=== PATIENT | female | born 1940 | race Two or more races ===

== ENCOUNTER 2023-06-16 02:00 | Inpatient (IN) | payer MEDICARE, MEDICAID ==
[~2023-06-16] VITALS: Ht 167.6 cm; Wt 42.6 kg
[2023-06-16] MEDS: ALBUTEROL FS 2.5 MG/3 ML VIAL.NEB NEB ONE (02:24)
[2023-06-16] MEDS ORDERED: methylPREDNISolone SOD SUCC 125 MG/2ML VIAL ONE (02:24)
[2023-06-16] MEDS ORDERED: ALBUTEROL FS 2.5 MG/3 ML VIAL.NEB ONE (02:25)
[2023-06-16] MEDS: IV NS 0.9% 1,000 ML IV ONE (02:32)
[2023-06-16] MEDS: methylPREDNISolone SOD SUCC 125 MG/2ML VIAL IV ONE (02:32)
[2023-06-16 03:18] LABS: CALCIUM, SERUM 8.4 mg/dL (8.5-10.1); CARBON DIOXIDE 15 mmol/L (21-32); CHLORIDE 105 mmol/L (98-107); CREATININE 1.3 mg/dL (0.6-1.3); GLUCOSE 175 mg/dL (74-106); POTASSIUM 4.8 mmol/L (3.5-5.1); SODIUM SERUM 140 mmol/L (136-145); UREA NITROGEN, BLOOD 49 mg/dL (7-18)
[2023-06-16 03:30] LABS: ALANINE AMINOTRANSFERASE 14 U/L (12-78); ALKALINE PHOSPHATASE 52 U/L (46-116); ASPARTATE AMINOTRANSFERASE 18 U/L (15-37); BILIRUBIN,TOTAL 0.3 mg/dL (0.2-1.0); NT-PRO BNP 2731 pg/mL (0-125); TOTAL PROTEIN, SERUM 5.1 g/dL (6.4-8.2)
[2023-06-16] MEDS ORDERED: VANCOMYCIN 1 GM /D5W 250 ML PB IV ONE (06:26)
[2023-06-16] MEDS ORDERED: PIPERACI/TAZO 3.375GM/D5W 50ML PB IV ONE (06:26)
[2023-06-16] MEDS: PIPERACILLIN /TAZOBACTAM 3.375 G in IV D5W 50 ML IV ONE (06:39)
[2023-06-16] MEDS: VANCOMYCIN 1 GM in IV D5W 250 ML IV ONE (06:59)
[2023-06-16 07:23] LABS: LACTIC ACID 10.7 mmol/L (0.4-2.0)
[2023-06-16 07:25] LABS: BASOPHILS % (AUTO) 0.2 % (0.0-2.0); EOSINOPHILS % (AUTO) 0.3 % (0.0-6.0); LYMPHOCYTES # (AUTO) 0.4 K/uL (0.8-4.8); LYMPHOCYTES % (AUTO) 6.5 % (20.0-44.0); MEAN CORPUSCULAR HEMOGLOBIN 29 PG (26.0-33.0); MEAN CORPUSCULAR HGB CONC 32 g/dl (31.0-36.0); MEAN CORPUSCULAR VOLUME 91 fL (82-100); MONOCYTES # (AUTO) 0.2 K/uL (0.1-1.30); MONOCYTES % (AUTO) 3.4 % (2.0-12.0); NEUTROPHILS # (AUTO) 5.8 K/uL (1.8-8.9); NEUTROPHILS % (AUTO) 89.6 % (43.0-81.0); PLATELET COUNT (AUTO) 164 K/uL (150-450); RED CELL DISTRIBUTION WIDTH 16.4 % (11.5-15.0); WHITE BLOOD COUNT (AUTO) 6.5 K/uL (4.3-11.0)
[2023-06-16 07:35] LABS: RED BLOOD CELL COUNT(AUTO) 1.84 MIL/uL (4.0-5.2)
[2023-06-16 07:36] LABS: HEMATOCRIT 17 % (33-45); HEMOGLOBIN 5.4 g/dL (11.5-14.8)
[2023-06-16 08:19] VITALS: BP 103/57; TEMP 93.5
[2023-06-16 08:24] LABS: ANISOCYTOSIS 1+; BAND % (MANUAL) 2 % (0.0-5.0); EOSINOPHILS % (MANUAL) 0 % (0-4); LYMPHOCYTES % (MANUAL) 8 % (16-48); MONOCYTES % (MANUAL) 4 % (0-11.0); NEUTROPHILS % (MANUAL) 86 (42-76); OVALOCYTES 1+; PLATELET ESTIMATE ADEQUATE
[2023-06-16] MEDS ORDERED: MAGN400O6 PO (08:53)
[2023-06-16] MEDS ORDERED: MAG-5 PO (08:53)
[2023-06-16] MEDS ORDERED: ALBU8.5H8 IH (08:53)
[2023-06-16] MEDS ORDERED: ACET-2605 PO (08:53)
[2023-06-16] MEDS ORDERED: ASCO-340 PO (08:53)
[2023-06-16] MEDS ORDERED: GLYC10.7 IH (08:53)
[2023-06-16] MEDS ORDERED: ATOR40TA PO (08:53)
[2023-06-16] MEDS ORDERED: MIRT-90 PO (08:53)
[2023-06-16] MEDS ORDERED: IBUP-2715 PO (08:53)
[2023-06-16] MEDS ORDERED: FOLI0.4T6 PO (08:53)
[2023-06-16] MEDS ORDERED: ASPI-1420 PO (08:53)
[2023-06-16] MEDS ORDERED: CALC-1321 PO (08:53)
[2023-06-16] MEDS ORDERED: AMLO2.5T4 PO (08:53)
[2023-06-16] MEDS ORDERED: DOCU100T2 PO (08:53)
[2023-06-16] MEDS ORDERED: FERR325T24 PO (08:53)
[2023-06-16] MEDS ORDERED: ACET-868 PO (08:53)
[2023-06-16] MEDS ORDERED: BISA10SU11 RC (08:53)
[2023-06-16] MEDS ORDERED: NA P133E RC (08:53)
[2023-06-16] MEDS ORDERED: LABE100T5 PO (08:53)
[2023-06-16] MEDS ORDERED: VALS160T2 PO (08:53)
[2023-06-16] MEDS ORDERED: MORPHINE SULFATE INJ 2 MG/ML DISP.SYRIN IV PRN (09:30)
[2023-06-16] MEDS ORDERED: Z GUARD REMEDY 4 OZ OINT TP PRN (09:30)
[2023-06-16] MEDS ORDERED: MAG HYDROX/AL HYDROX/SIMETH 30 ML UDC PO PRN (09:30)
[2023-06-16] MEDS ORDERED: MAGNESIUM HYDROXIDE 30 ML UDC PO PRN (09:30)
[2023-06-16] MEDS ORDERED: ALBUTEROL FS 2.5 MG/0.5 ML VIAL.NEB NEB PRN (09:30)
[2023-06-16] MEDS ORDERED: IPRATROPIUM NEB FS 0.5 MG/2.5 ML AMPUL.NEB NEB PRN (09:30)
[2023-06-16] MEDS ORDERED: ACETAMINOPHEN 325 MG TABLET PO PRN (09:30)
[2023-06-16] MEDS ORDERED: ONDANSETRON HCL/PF 4 MG/2 ML VIAL IVP PRN (09:30)
[2023-06-16] MEDS ORDERED: ONDANSETRON 4 MG TAB.RAPDIS SL SCH (09:30)
[2023-06-16] MEDS ORDERED: ASPIRIN 81 MG TAB.CHEW PO SCH (09:30)
[2023-06-16 09:47] LABS: BILIRUBIN,DIRECT 0.1 mg/dL (0.0-0.2)
[2023-06-16] MEDS ORDERED: ALBUTEROL FS 2.5 MG/0.5 ML VIAL.NEB ONE (09:59)
[2023-06-16 10:01] LABS: LACTIC ACID REFLEX 6.2 mmol/L (0.4-1.9)
[2023-06-16 10:06] VITALS: O2SAT 100
[2023-06-16] MEDS: ALBUTEROL FS 2.5 MG/0.5 ML VIAL.NEB NEB ONE (10:06)
[2023-06-16 10:18] VITALS: O2SAT 100
[2023-06-16 10:19] VITALS: O2SAT 100
[2023-06-16] MEDS: CEFEPIME 1 GM in IV D5W 50 ML IV SCH (12:29)
[2023-06-17] MEDS ORDERED: VANCOMYCIN 500 MG in IV D5W 100 ML IV SCH (07:00)
[2023-06-17] MEDS ORDERED: PANTOPRAZOLE 40 MG VIAL IV SCH (09:00)
== END 2023-06-16 17:10 | DRG 871 ==
LOC: ER 02:02 → TELE-TD 10:27 → MEDSG1 10:56
PROVIDERS: ADMIT Nurse Practitioner Acute Care; ATTEND Nurse Practitioner Acute Care
PROC: 5A09357 Assistance with Respiratory Ventilation, Less than 24 Consecutive Hours, Continuous Positive Airway Pressure (ICD-10-PCS; principal; 2023-06-16)
DX: A41.9 Sepsis, unspecified organism (principal); E43 Unspecified severe protein-calorie malnutrition; G93.41 Metabolic encephalopathy; I21.A1 Myocardial infarction type 2; J18.9 Pneumonia, unspecified organism; Z51.5 Encounter for palliative care; J96.01 Acute respiratory failure with hypoxia; R65.21 Severe sepsis with septic shock; E87.20 Acidosis, unspecified; I13.0 Hypertensive heart and chronic kidney disease with heart failure and stage 1 through stage 4 chronic kidney disease, or unspecified chronic kidney disease; R64 Cachexia; I50.30 Unspecified diastolic (congestive) heart failure; Z68.1 Body mass index [BMI] 19.9 or less, adult; J44.0 Chronic obstructive pulmonary disease with (acute) lower respiratory infection; D64.9 Anemia, unspecified; E78.5 Hyperlipidemia, unspecified; E88.09 Other disorders of plasma-protein metabolism, not elsewhere classified; H47.011 Ischemic optic neuropathy, right eye; I25.10 Atherosclerotic heart disease of native coronary artery without angina pectoris; I71.43 Infrarenal abdominal aortic aneurysm, without rupture; N18.9 Chronic kidney disease, unspecified; Z66 Do not resuscitate; Z86.73 Personal history of transient ischemic attack (TIA), and cerebral infarction without residual deficits; Z87.891 Personal history of nicotine dependence; M62.81 Muscle weakness (generalized); F02.80 Dementia in other diseases classified elsewhere, unspecified severity, without behavioral disturbance, psychotic disturbance, mood disturbance, and anxiety; G30.9 Alzheimer's disease, unspecified
CPT/HCPCS: 36415; 71045-TC; 80053-TC; 82248-TC; 83605-TC; 83880; 84484-TC; 85025-TC; 87040-TC; 93307-TC; A4223; G0378; J0692; J2543; J2930; J3370; J7040; J7060